=== PATIENT | female | born 1940 | race Caucasian/White ===

== ENCOUNTER 2022-03-19 07:55 | Day surgery (SDC) | payer MEDICARE, OTHER ==
[~2022-03-19] VITALS: Ht 175.3 cm; Wt 85.3 kg
--- NOTE | ~2022-03-19 | OR ---
[facility] [address], [place] [address] Draft DATE OF OPERATION: 03/19/2022 SURGEON: Carmelo Machado MD PREOP DIAGNOSIS: Bilateral chronic middle ear effusions. POSTOPERATIVE DIAGNOSIS: Bilateral chronic middle ear effusions. PROCEDURES: Bilateral myringotomy and ventilation tube insertion. ANESTHESIA: General mask; Ahsan OGLESBY PREOP HISTORY: Wesley is an 81-year-old lady with chronic middle ear effusions, hearing loss, unresponsive to appropriate medications. She is taken to the operating room for the above-mentioned procedures. OPERATIVE PROCEDURE AND FINDINGS: After informed consent, the patient was taken to the operating room, placed in supine position, where general mask anesthesia was induced. The patient and procedure were verified. The patient was repositioned. Left ear was examined with the operating microscope. Eardrum was dull, retracted. Anterior-inferior radial myringotomy was made. Serous effusion suctioned from the middle ear space. [place] tube placed in myringotomy site. Ofloxacin ophthalmic drops applied to the ear canal, cotton ball to the meatus. Same procedure on the right ear, although the effusion with slightly more mucoid. Tube was placed, drops and cotton ball. The patient tolerated the procedure well, was awakened and transported to the recovery room in good condition. COMPLICATIONS: No complications. BLOOD LOSS: Minimal. SPECIMEN: No specimen. PATIENT NAME: WESLEY MOLINA OPERATIVE REPORT DATE OF : 42 REPORT #: [id number] PHYSICIAN: CARMELO MACHADO MD PCP: ARAVIND PEREIRA DO REPORT IS CONFIDENTIAL AND NOT TO BE RELEASED WITHOUT AUTHORIZATION [address] [place] [address] Draft DRAINS: No drains. Carmelo Machado MD GC/JARETH /[id number] Copies: ~ PATIENT NAME: WESLEY MOLINA OPERATIVE REPORT DATE OF : 42 REPORT #: [id number] PHYSICIAN: CARMELO MACHADO MD PCP: ARAVIND PEREIRA DO REPORT IS CONFIDENTIAL AND NOT TO BE RELEASED WITHOUT AUTHORIZATION
[~2022-03-19 07:55] MED LIST: ATORVASTATIN CA10 MG PO; CINNAMON500 MG PO; ECOTRIN325 MG PO; FISH OIL 1,2001 EAC6 PO; FOSAMAX70 MG PO; LEVOTHYROXINE125 MCG PO; LISINOPRIL20 MG PO; OCUVITE TABLET1 EAC1 PO; OSTERA TABLET1 EACH PO; VITAMIN B-121000 MCG PO
--- NOTE | 2022-03-19 10:40 | NUR ---
03/19/22 1040 Lillie Cornell 1035 PATIENT ARRIVES TO PACU SLEEPING. OPENS EYES WITH VERBAL STIMULI, BACK TO SLEEP WHEN NOT STIMULATED. RESP EVEN AND UNLABORED, MASK AT 6 LITERS.
--- NOTE | 2022-03-19 12:04 | NUR ---
1135: DISCHARGE INSTRUCTIONS GIVEN TO PATIENT AND . PATIENT ASSISTED OOB AND TO WALK AROUND ROOM. GAIT STEADY. PATIENT GETTING DRESSED WITH HELP FROM . 1157: VS CHECKED. IV DC'D WNL. TIP INTACT. DRESSING APPLIED. PATIENT DISCHARGED TO HOME VIA WHEELCHAIR WITH .
== END 2022-03-19 11:55 | disposition home or self-care (01) ==
LOC: DS 07:55 → OPS 07:55 → DS 08:45 → OPS 10:10
PROVIDERS: ATTEND Otolaryngology
PROC: 099500Z Drainage of Right Middle Ear with Drainage Device, Open Approach (ICD-10-PCS; 2022-03-19)
PROC: 099600Z Drainage of Left Middle Ear with Drainage Device, Open Approach (ICD-10-PCS; principal; 2022-03-19 10:10)
DX: H65.93 Unspecified nonsuppurative otitis media, bilateral (principal); I12.9 Hypertensive chronic kidney disease with stage 1 through stage 4 chronic kidney disease, or unspecified chronic kidney disease; N18.9 Chronic kidney disease, unspecified; E78.00 Pure hypercholesterolemia, unspecified; H90.6 Mixed conductive and sensorineural hearing loss, bilateral; Z88.8 Allergy status to other drugs, medicaments and biological substances
CPT/HCPCS: J0131; J2405; J2704; J7121

== ENCOUNTER 2024-06-27 06:45 | Emergency (ER) | payer MEDICARE, OTHER ==
[~2024-06-27] VITALS: Ht 175.3 cm; Wt 70.3 kg
[2024-06-27 07:36] LABS: BASOPHILS 0.6 % (0-2); EOSINOPHILS 6.1 % (0-6); HEMOGLOBIN 11.5 g/dL (12.0-18.0); LYMPHOCYTES 36.1 % (24-44); MCH 30.8 (27-36); MCHC 32.9 g/dl (30-36); MCV 93.4 fl (81-99); MONOCYTES 4.4 % (0-12); NEUTROPHILS 52.8 % (39-80); PLATELET COUNT 239 K/uL (140-440); RBC 3.75 M/ul (4.3-5.7); RDW 13.9 (10.5-15.0)
[2024-06-27 07:44] LABS: BILIRUBIN, URINE NEGATIVE (negative); BLOOD/HGB, URINE SMALL (Negative); KETONE, URINE NEGATIVE (Negative); LEUK ESTERASE, URINE NEGATIVE (negative); NITRITE, URINE NEGATIVE (negative); PH, URINE 5.5 (5-7)
[2024-06-27 07:49] LABS: ALBUMIN 3.2 g/dL (3.4-5.0); ALBUMIN/GLOBULIN RATIO 0.84 (1.1-2.4); ANION GAP 11.4 (7-21); BILIRUBIN, TOTAL 0.3 ng/dL (0.2-1.0); BUN/CREATININE RATIO 15.36 (6.0-28.6); CALCIUM 9.8 mg/dL (8.5-10.1); CREATININE, SERUM 3.19 mg/dL (0.55-1.02); POTASSIUM 4.4 mmol/L (3.5-5.1)
[2024-06-27 07:51] LABS: EPITHELIAL CELLS, URINE SQUAMOUS 1+ /lpf (0-1+)
[2024-06-27 07:52] LABS: BACTERIA, URINE RARE /hpf (negative); CASTS, URINE NONE SEEN \\lpf; COLLECTION TYPE, URINE CATH; CRYSTALS, URINE NONE SEEN (0-1+); RED BLOOD CELLS, URINE 0-1 /hpf (0-5); REFLEX CULTURE, URINE No (No)
[2024-06-27 08:14] VITALS: BP 152/76
== END 2024-06-27 08:17 | disposition home or self-care (01) ==
LOC: ED 06:45
PROVIDERS: Emergency Medicine
DX: R10.32 Left lower quadrant pain (principal); I10 Essential (primary) hypertension; E03.9 Hypothyroidism, unspecified; F03.90 Unspecified dementia, unspecified severity, without behavioral disturbance, psychotic disturbance, mood disturbance, and anxiety; Z88.8 Allergy status to other drugs, medicaments and biological substances; Z79.82 Long term (current) use of aspirin; Z79.890 Hormone replacement therapy; Z79.899 Other long term (current) drug therapy
CPT/HCPCS: 36415; 51701; 74018; 80053; 81001; 85025; 99284-25